=== PATIENT | male | born 1955 | race Two or more races ===

== ENCOUNTER 2019-06-04 16:51 | Emergency (ER) | payer MEDICAID, OTHER ==
[~2019-06-04] VITALS: Ht 165.1 cm; Wt 99.8 kg
--- NOTE | 2019-06-04 17:04 | NUR ---
patient Yeimi from home, c/o left hand and shoulder pain 7/10 pain scale, s/p slipped and fall, -ko, on room air, breathing evenly and unlabored. Connected to the monitor and pulse ox. kept comfortable, will continue to monitor accordingly.
--- NOTE | 2019-06-04 17:05 | NUR ---
Kiera MANAGER PROGRAM MANAGEMENT at bedside for eval.
--- NOTE | 2019-06-04 18:54 | NUR ---
GUMARO Sullivan applied sugar thong 4in on Left arm as ordered. Supported by arm sling after. Patient discharged to home in stable condition. Written and verbal after care instructions given. Patient verbalizes understanding of instruction.
[2019-06-04 18:56] VITALS: BP 149/98
== END 2019-06-04 19:04 | disposition home or self-care (01) ==
LOC: ER 17:00
DX: S52.572A Other intraarticular fracture of lower end of left radius, initial encounter for closed fracture (principal); M25.512 Pain in left shoulder; W01.0XXA Fall on same level from slipping, tripping and stumbling without subsequent striking against object, initial encounter; Y93.01 Activity, walking, marching and hiking; Y92.89 Other specified places as the place of occurrence of the external cause; Y99.8 Other external cause status
CPT/HCPCS: 73030-TC; 73110

== ENCOUNTER 2019-08-07 14:08 | Emergency (ER) | payer OTHER ==
[~2019-08-07] VITALS: Ht 172.7 cm; Wt 94.3 kg
[2019-08-07] MEDS ORDERED: IV NS 0.9% 1,000 ML BAG IV ONE ×2 (15:00→16:30)
[2019-08-07 15:11] LABS: BASOPHILS % (AUTO) 0.5 % (0.0-2.0); EOSINOPHILS % (AUTO) 1.1 % (0.0-6.0); HEMATOCRIT 37 % (39-51); HEMOGLOBIN 12.5 g/dL (13.5-17.5); LYMPHOCYTES # (AUTO) 2.3 /CMM (0.8-4.8); LYMPHOCYTES % (AUTO) 26.9 % (20.0-44.0); MEAN CORPUSCULAR HGB CONC 34 g/dl (31.0-36.0); MEAN CORPUSCULAR VOLUME 90 fL (80-96); MONOCYTES % (AUTO) 11.4 % (2.0-12.0); NEUTROPHILS # (AUTO) 5.1 /CMM (1.8-8.9); NEUTROPHILS % (AUTO) 60.1 % (43.0-81.0); PLATELET COUNT (AUTO) 272 /CMM (150-450); RED BLOOD CELL COUNT(AUTO) 4.16 MIL/uL (4.5-6.0); WHITE BLOOD COUNT (AUTO) 8.5 K/uL (4.3-11.0)
[2019-08-07 15:36] LABS: CALCIUM, SERUM 8.8 mg/dL (8.5-10.1); CREATININE 1.1 mg/dL (0.6-1.3); POTASSIUM 4.6 mmol/L (3.5-5.1)
[2019-08-07 15:42] LABS: ALBUMIN 3.5 g/dL (3.4-5.0); BILIRUBIN,TOTAL 0.7 mg/dL (0.2-1.0); TOTAL PROTEIN, SERUM 7.8 g/dL (6.4-8.2)
[2019-08-07 16:03] LABS: BILIRUBIN,DIRECT 0.1 mg/dL (0.0-0.2)
--- NOTE | 2019-08-07 16:10 | NUR ---
Patient family @ bedside made aware [facility] [phone]
[2019-08-07] MEDS ORDERED: MORPHINE SULFATE INJ 2 MG/ML DISP.SYRIN IV ONE (16:30)
[2019-08-07] MEDS ORDERED: CT SWABBABLE VALVE TRANS SET 1 EA INFUS.SET MC ONE (16:40)
[2019-08-07] MEDS ORDERED: IOHEXOL-300 100 ML VIAL IV ONE (16:40)
[2019-08-07] MEDS ORDERED: IV NS 0.9% 250 ML IV ONE (16:40)
[2019-08-07] MEDS ORDERED: LOSA50TA39 PO (16:57)
--- NOTE | 2019-08-07 17:03 | NUR ---
Patient awake alert [place] speaking he denies pain or sob no nausea and vomiting ,SR ,gown ,lab drw done and Ct awaiting for urine sample
--- NOTE | 2019-08-07 17:33 | NUR ---
DR. Palacio @ bedside regarding Ct result
--- NOTE | 2019-08-07 17:35 | NUR ---
CALLED [facility], FOR VASCULAR SURGEON TRANSFER
[2019-08-07 17:58] LABS: APPEARANCE,URINE Clear (CLEAR); BILIRUBIN,URINE Negative (NEGATIVE); BLOOD, URINE Small Ery/uL (NEGATIVE); COLOR,URINE Dark (YELLOW); KETONES,URINE Negative (NEGATIVE); LEUKOCYTE ESTERASE ,URINE Negative (NEGATIVE); NITRITE, URINE Negative (NEGATIVE); PROTEIN,URINE Negative (NEGATIVE); UGLUCOSE Negative (NEGATIVE)
--- NOTE | 2019-08-07 17:58 | NUR ---
CALLED [facility] SPOKE TO NURSING MANUEL SCHROEDER, FAXED FACESHEET AND CLINICALS
[2019-08-07 18:06] LABS: BACTERIA,URINE Rare /HPF (None Seen); SQUAMOUS EPITHELIAL CELL,UR Rare /HPF (None Seen); URINE AMORPHOUS URATE Few /HPF (None Seen); WBC,URINE 0-2 /HPF (0-3)
--- NOTE | 2019-08-07 18:16 | NUR ---
PER [facility].
--- NOTE | 2019-08-07 19:20 | NUR ---
CALLED [facility] PAGAN, FAXED INFO OVER
--- NOTE | 2019-08-07 19:26 | NUR ---
Transfer care report to Markus CARPENTER
--- NOTE | 2019-08-07 19:58 | NUR ---
PER PERRI AT [facility], VASCULAR SURGEON IS UNAVAILABLE TODAY
--- NOTE | 2019-08-07 20:05 | NUR ---
TRANSFER INFO: PT ACCEPTED AT [facility] BY DR HILLIARD, PLEASE GIVE REPORT TO RN AT [phone], [id number] ETA [phone] HOURS
--- NOTE | 2019-08-07 20:26 | NUR ---
REPORT GIVEN TO PAULINE BLAND AT THE REPLACED BY [facility].
--- NOTE | 2019-08-07 21:19 | NUR ---
PER DR MILLARD. PT OK TO BE TRANSFERRED VIA 911 TO [facility]. ACCEPTING MD DR HILLIARD.
[2019-08-07 21:25] VITALS: BP 121/63
--- NOTE | 2019-08-07 21:26 | NUR ---
Cathleen wright in EDM - 08/07/19 at 2130 by CARLITO REPORT GIVEN TO PAULINE BLAND AT [facility].
--- NOTE | 2019-08-07 21:31 | NUR ---
PT ENROUTE TO [facility] ON GURNEY VIA 91. REPORT GIVEN TO RA Ros
== END 2019-08-07 21:30 | disposition short-term general hospital (02) ==
LOC: ER 14:08
DX: M54.5 Low back pain (principal); I71.4 Abdominal aortic aneurysm, without rupture; Z79.899 Other long term (current) drug therapy
CPT/HCPCS: 36415; 71045; 71260; 74177; 80048; 80076; 81001; 83605; 83690; 84484; 85025; 85730; 87040; 87081; 87086; 93005; 99285; J7030 ×2; J7050; Q9967; 81000-TC